=== PATIENT | male | born 1955 | race Caucasian/White ===

== ENCOUNTER 2017-01-20 15:00 | Outpatient (CLI) | payer OTHER | END 2017-01-20 15:01 | disposition critical access hospital (66) | LOC: EMS 15:00 | PROVIDERS: ATTEND Surgery | DX: R10.2 Pelvic and perineal pain (principal); V80.010A Animal-rider injured by fall from or being thrown from horse in noncollision accident, initial encounter; Y93.52 Activity, horseback riding; Y92.008 Other place in unspecified non-institutional (private) residence as the place of occurrence of the external cause | CPT/HCPCS: A0425; A0429 ==

== ENCOUNTER 2017-01-20 15:30 | Emergency (ER) | payer OTHER ==
--- NOTE | 2017-01-20 16:20 | ED Physician Documentation ---
History of Present Illness - Stated complaint Stated Complaint: R HIP PAIN - Chief complaint Chief Complaint: Ext Problem - History obtained from History obtained from: Patient, EMS - History of Present Illness Timing: Today Pain level max: 5 Pain level now: 5 Improved by: rest Worsened by: movement - Additonal information Additional information: fall off horse. landed on R hip. Was able to stand with assistance. but unable to walk. Called EMS and placed on backboard. No head injury. no neck injury. Review of Systems Constitutional: denies: Fever, Chills Throat: denies: Sore throat Cardiac: denies: Chest pain / pressure Respiratory: denies: Cough GI: denies: Nausea, Vomiting, Diarrhea Skin: denies: Rash Musculoskeletal: denies: Neck pain, Back pain Neurologic: denies: Headache PD PAST MEDICAL HISTORY - Past Medical History Past Medical History: Yes - Past Surgical History Past Surgical History: No - Present Medications Home Medications: Ambulatory Orders Medication Instructions Recorded Confirmed Hydrocodone/Acetaminophen 1 - 2 each PO Q6H PRN #20 tablet 01/20/17 [Hydrocodon-Acetaminophen 5-325] - Allergies Allergies/Adverse Reactions: Allergies Allergy/AdvReac Type Severity Reaction Status Date / Time No Known Drug Allergies Allergy Verified 01/20/17 15:45 - Social History Does the pt smoke?: No Smoking Status: Unknown if ever smoked Does the pt drink ETOH?: Yes - Immunizations Immunizations are current?: Yes PD ED PE NORMAL - Vitals Vital signs reviewed: Yes - General General: Alert and oriented X 3, No acute distress, Well developed/nourished - HEENT HEENT: Atraumatic, PERRL, EOMI, Ears normal, Moist mucous membranes - Neck Neck: Supple, no meningeal sign, No bony TTP - Cardiac Cardiac: RRR, Strong equal pulses - Respiratory Respiratory: No respiratory distress, Clear bilaterally - Abdomen Abdomen: Soft, Non tender, Non distended - Back Back: Other (TTP low lumbar. Pelvis is stable.) - Derm Derm: Warm and dry - Extremities Extremities: Other (TTP over R hip and pubic ramus. o/w normal exam) - Neuro Neuro: Alert and oriented X 3 - Psych Psych: Normal mood, Normal affect Results - Vitals Vitals: Vital Signs - 24 hr 01/20/17 01/20/17 15:42 18:35 Temperature 36.8 C Heart Rate 59 L 74 Respiratory 12 16 Rate Blood Pressure 112/72 105/70 O2 Saturation 100 Oxygen O2 Source Room air - Labs Labs: Laboratory Tests 01/20/17 01/20/17 16:46 16:46 WBC 16.9 H RBC 4.99 Hgb 15.4 Hct 45.7 MCV 91.5 MCH 30.9 MCHC 33.8 RDW 13.0 Plt Count 201 MPV 9.6 Neut # 14.8 H Lymph # 1.0 L [place] # 1.0 Eos # 0.0 Baso # 0.1 Absolute Nucleated RBC 0.02 Nucleated RBCs 0.1 Sodium 137 Potassium 3.8 Chloride 103 Carbon Dioxide 25 Anion Gap 9.0 BUN 26 H Creatinine 1.0 Estimated GFR (MDRD) 76 L Glucose 108 H Calcium 9.2 Total Bilirubin 1.0 AST 32 ALT 30 Alkaline Phosphatase 65 Total Protein 7.0 Albumin 4.4 Globulin 2.6 Albumin/Globulin Ratio 1.7 Lipase 27 - Rads (name of study) hip/pelvis xray Radiology: Prelim report reviewed, EMP read contemporaneously, See rad report ( Prominent symphysis pubis diastases of 9 mm, otherwise unremarkable pelvis and hip radiography. No fracture identified. ) L spine xray Radiology: Prelim report reviewed, EMP read contemporaneously, See rad report ( No fracture identified. Minimal dextroscoliosis and loss of normal cervical lordosis. . Multilevel degenerative lumbar disk disease, worst at L4-L5. ) PD MEDICAL DECISION MAKING - ED course Complexity details: reviewed results, re-evaluated patient, considered differential, d/w patient, d/w family, d/w consultant [employer]. 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 No acute findings radiographically other than a prominent symphysis pubis diastasis of 9 mm. Pelvis is stable on exam. Discussed the case with orthopedics, Dr. Barcenas who recommends weightbearing as tolerated, walker and follow-up in the office in 1-2 weeks for repeat x-ray. Abdomen remained soft, nontender nondistended. No neurological deficits. Pain well controlled and he is able to ambulate well with a walker. Patient and family counseled regarding signs and symptoms for which I believe and urgent re- evaluation would be necessary. Patient with good understanding of and agreement to plan and is comfortable going home at this time This document was made in part using voice recognition software. While efforts are made to proofread this document, sound alike and grammatical errors may occur. Spines cleared clinically. No evidence of head trauma Departure - Departure Disposition: 01 Home, Self Care Clinical Impression: Traumatic diastasis of symphysis pubis Qualifiers: Encounter type: initial encounter Qualified Code(s): S33.4XXA - Traumatic rupture of symphysis pubis, initial encounter Condition: Good Instructions: ED Acute Pain [facility] Follow-Up: [facility] [Provider Group] (in 1-2 weeks for repeat xrays. ) Prescriptions: Hydrocodone/Acetaminophen [Hydrocodon-Acetaminophen 5-325] 1 - 2 each PO Q6H PRN #20 tablet PRN Reason: pain Comments: Return if you worsen. this should improve over the next week or two. Make sure to follow up with orthopedics within 1-2 weeks for repeat xrays. Do not drink alcohol or drive while on narcotic pain medicine. Note that many narcotic pain relievers also contain tylenol/acetaminophen. Please ensure that your total dose of acetaminophen from all sources does not exceed 3 grams (3000mg) per day. You may constipated on this medication, take a stool softener such as "Colace" twice a day while you are on it. Also recommend a vbff-riq-wugjtte laxative such as senna or MiraLAX any day that you do not have a bowel movement. If you received narcotic pain medication in the emergency department, do not drive or operate machinery for the next 24 hours. Discharge Date/Time: 01/20/17 18:40
[2017-01-20 16:53] LABS: BASOPHILS # (AUTO) 0.1 10^3/uL (0.0-0.1); BASOPHILS % (AUTO) 0.6 %; EOSINOPHILS % (AUTO) 0.2 %; HCT - HEMATOCRIT 45.7 % (42.0-52.0); HGB - HEMOGLOBIN 15.4 g/dL (14.0-18.0); LYMPHOCYTES % (AUTO) 5.7 %; MEAN CORPUSCULAR HEMOGLOBIN 30.9 pg (27.0-31.0); MEAN CORPUSCULAR HGB CONC 33.8 g/dL (32.0-36.0); MEAN CORPUSCULAR VOLUME 91.5 fL (80.0-94.0); MEAN PLATELET VOLUME 9.6 fL (7.4-11.4); MONOCYTES % (AUTO) 5.8 %; NEUTROPHILS # (AUTO) 14.8 10^3/uL (1.5-6.6); NEUTROPHILS % (AUTO) 87.7 %; NUCLEATED RED BLOOD CELLS AUTO 0.1 /100WBC; RED BLOOD COUNT 4.99 10^6/uL (4.70-6.10); UNCORRECTED WHITE BLOOD COUNT 16.9 x10^3/uL; WHITE BLOOD COUNT 16.9 x10^3/uL (4.8-10.8)
--- NOTE | 2017-01-20 17:02 | XRAY Preliminary Report ---
Exam: XR Hip w/Pelvis 2-3V RT IMPRESSION: Prominent symphysis pubis diastases of 9 mm, otherwise unremarkable pelvis and hip radiog sae. No fracture identified. [facility] SITE ID: [id number]
--- NOTE | 2017-01-20 17:05 | XRAY Preliminary Report ---
Exam: XR Lumbar Spine 2 View IMPRESSION: 1. No fracture identified. 2. Minimal dextroscoliosis and loss of normal cervical lordosis. 3. Multilevel degenerative lumbar disk disease, worst at L4-L5. [facility] SITE ID: [id number]
--- NOTE | 2017-01-20 17:05 | XRAY Report ---
EXAM: RIGHT HIP AND PELVIS RADIOGRAPHY EXAM DATE: 01/20/2017 04:21 PM. HISTORY: Fall off horse. Hip pain. COMPARISONS: None. TECHNIQUE: 1 view of the pelvis and 1 view of the hip. FINDINGS: Bones: Normal. No fracture or bone lesion. Joints: Prominent symphysis pubis diastases of 9 mm, otherwise the bilateral hip, pubis symphysis, an d sacroiliac joints are preserved. Soft Tissues: Normal. No soft tissue swelling. IMPRESSION: Prominent symphysis pubis diastases of 9 mm, otherwise unremarkable pelvis and hip radiog sae. No fracture identified. [facility] Referring Provider Line: [phone] SITE ID: [id number]
--- NOTE | 2017-01-20 17:07 | XRAY Report ---
EXAM: LUMBOSACRAL SPINE RADIOGRAPHY EXAM DATE: 01/20/2017 04:21 PM. CLINICAL HISTORY: Fall off horse. Back and hip pain. COMPARISONS: None. TECHNIQUE: 2 views. FINDINGS: Alignment: Minimal dextroscoliosis. No spondylolisthesis. Loss of normal lumbar lordosis. Bones: Five gym-xhh-gbxkjag lumbar vertebral bodies are present. No fractures or bone lesions. Disks: Multilevel disk space narrowing with spurring, worst at L4-L5, least at L3-L4. Sacroiliac Joints: Unremarkable. Soft Tissues: Normal. The visualized bowel gas pattern is normal. IMPRESSION: 1. No fracture identified. 2. Minimal dextroscoliosis and loss of normal cervical lordosis. 3. Multilevel degenerative lumbar disk disease, worst at L4-L5. [facility] Referring Provider Line: [phone] SITE ID: [id number]
[2017-01-20 17:21] LABS: ALBUMIN/GLOBULIN RATIO 1.7 (1.0-2.2); CALCIUM 9.2 mg/dL (8.5-10.3); POTASSIUM 3.8 mmol/L (3.5-5.0)
[2017-01-20] MEDS ORDERED: MORPHINE 2 MG/ML SYRINGE IVP STA (17:28)
[2017-01-20] MEDS ORDERED: MORPHINE 2 MG/ML SYRINGE ONE ×2 (17:30→17:43)
[2017-01-20] MEDS ORDERED: HYDROcod/ACETAM 5/325 MG TABLET PO STA (18:17)
[2017-01-20] MEDS ORDERED: HYDROcod/ACETAM 5/325 MG TABLET ONE (18:18)
[2017-01-20 18:51] VITALS: BP 105/70
== END 2017-01-20 18:40 | disposition home or self-care (01) ==
LOC: EDBD → ED 15:30
DX: S33.4XXA Traumatic rupture of symphysis pubis, initial encounter (principal); V80.010A Animal-rider injured by fall from or being thrown from horse in noncollision accident, initial encounter; Y93.52 Activity, horseback riding; Y92.838 Other recreation area as the place of occurrence of the external cause
CPT/HCPCS: 36415; 72100; 73502; 80053; 83690; 85025; 96374; 99284; A9270

== ENCOUNTER 2020-02-21 08:00 | Outpatient (CLI) | payer OTHER, MEDICARE ==
--- NOTE | 2020-02-21 16:25 | XRAY Report ---
PROCEDURE: Finger(s) LT INDICATIONS: LEFT THUMB PAIN TECHNIQUE: AP hand, 3 views of the thumb finger(s) acquired. COMPARISON: None. FINDINGS: Bones: No acute fractures or dislocations. Minimal degenerative changes of the thumb carpometacarpal , metacarpophalangeal, and interphalangeal joints. No suspicious bony lesions. Soft tissues: No suspicious soft tissue calcifications. No radiopaque soft tissue foreign bodies id entified. IMPRESSION: 1. No radiopaque soft tissue foreign bodies. 2. Left thumb without acute fracture or dislocation. 3. Minimal degenerative changes of the left thumb. Reviewed by: Gregg Lindsay MD on 02/21/2020 4:24 PM PDT Approved by: Gregg Lindsay MD on 02/21/2020 4:24 PM PDT Station ID: [id number]
== END 2020-02-21 23:59 | disposition home or self-care (01) ==
LOC: DI.S 08:00
PROVIDERS: ATTEND Physician Assistant Medical
DX: M19.042 Primary osteoarthritis, left hand (principal)
CPT/HCPCS: 73140

== ENCOUNTER 2023-02-23 11:29 | Emergency (ER) | payer MEDICARE, OTHER ==
[2023-02-23 11:56] LABS: BASOPHILS % (AUTO) 0.8 %; EOSINOPHILS # (AUTO) 0.1 10^3/uL (0.0-0.7); EOSINOPHILS % (AUTO) 2.3 %; HCT - HEMATOCRIT 47.8 % (42.0-52.0); HGB - HEMOGLOBIN 16.4 g/dL (14.0-18.0); LYMPHOCYTES # (AUTO) 1.7 10^3/uL (1.5-3.5); LYMPHOCYTES % (AUTO) 31.5 %; MEAN CORPUSCULAR HEMOGLOBIN 30.9 pg (27.0-31.0); MEAN CORPUSCULAR HGB CONC 34.3 g/dL (32.0-36.0); MEAN CORPUSCULAR VOLUME 90.2 fL (80.0-94.0); MEAN PLATELET VOLUME 11.2 fL (7.4-11.4); MONOCYTES # (AUTO) 0.5 10^3/uL (0.0-1.0); MONOCYTES % (AUTO) 8.4 %; NEUTROPHILS % (AUTO) 56.6 %; PLT - PLATELET COUNT 202 10^3/uL (130-450); WHITE BLOOD COUNT 5.3 x10^3/uL (4.8-10.8)
[2023-02-23 12:11] LABS: ALBUMIN 4.5 g/dL (3.2-5.5); ALBUMIN/GLOBULIN RATIO 1.5 (1.0-2.2); BILIRUBIN,TOTAL 0.9 mg/dL (0.2-1.0); CALCIUM 9.4 mg/dL (8.5-10.3); CREATININE 0.9 mg/dL (0.6-1.3); POTASSIUM 4.2 mmol/L (3.5-4.5); TOTAL PROTEIN 7.6 g/dL (6.4-8.9)
[2023-02-23] MEDS ORDERED: ATROPINE 0.4 MG/ML VIAL IVP ONE (12:15)
[2023-02-23 12:16] LABS: TROPONIN I HIGH SENSITIVITY 2.9 ng/L (2.3-19.7)
--- NOTE | 2023-02-23 12:35 | ED Physician Documentation ---
History of Present Illness - Stated complaint Stated Complaint: FAINTED,HEAD PX - Chief complaint Chief Complaint: Trauma Hd/Nk - History obtained from History obtained from: Patient, Family - History of Present Illness Timing: Today Pain level max: 9 Pain level now: 0 - Additonal information Additional information: Patient is a 67-year-old male who presents to the emergency department stating that he had a syncopal event today. He states he had a severe left-sided headache, sudden onset followed by syncope he thinks for about 5 minutes. He states that he has passed out before, usually following a stimuli such as a blood draw. 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 He is not on any medications at home. Does not see a triage licensed practical nurse. Does have a primary care provider. Does not smoke or use any drugs. Patient states his headache is currently resolved. No focal neurological deficits. No neck or back pain. Review of Systems Constitutional: denies: Fever, Chills GI: denies: Vomiting, Diarrhea Skin: denies: Rash Musculoskeletal: denies: Neck pain, Back pain Neurologic: denies: Seizure, Confused PD PAST MEDICAL HISTORY - Past Medical History Past Medical History: No - Past Surgical History Past Surgical History: No - Present Medications Home Medications: Ambulatory Orders Medication Instructions Recorded Confirmed Hydrocodone/Acetaminophen 1 - 2 each PO Q6H PRN #20 tablet 01/20/17 [Hydrocodon-Acetaminophen 5-325] - Allergies Allergies/Adverse Reactions: Allergies Allergy/AdvReac Type Severity Reaction Status Date / Time peanut Allergy Unknown Verified 02/23/23 11:42 - Living Situation Living Situation: reports: With family Living Arrangement: reports: At home - Social History Does the pt smoke?: No Smoking Status: Unknown if ever smoked Does the pt drink ETOH?: Yes - Immunizations Immunizations are current?: Yes PD ED PE NORMAL - Vitals Vital signs reviewed: Yes - General General: Alert and oriented X 3, No acute distress, Well developed/nourished - HEENT HEENT: PERRL, Ears normal, Moist mucous membranes, Pharynx benign - Neck Neck: Supple, no meningeal sign - Cardiac Cardiac: RRR, No murmur, Strong equal pulses - Respiratory Respiratory: No respiratory distress, Clear bilaterally - Abdomen Abdomen: Soft, Non tender, Non distended - Derm Derm: Warm and dry - Extremities Extremities: No edema, No calf tenderness / cord - Neuro Neuro: Alert and oriented X 3 - Psych Psych: Normal mood, Normal affect Results - Vitals Vitals: Vital Signs - 24 hr 02/23/23 02/23/23 02/23/23 11:35 12:11 12:30 Temperature 35.6 C L Heart Rate 48 L 45 L 38 L Respiratory 16 16 13 Rate Blood Pressure 135/73 H 132/80 H 123/79 O2 Saturation 100 100 100 Oxygen O2 Source Room air - EKG (time done) 1155 EKG releavant findings:: EKG personally interpreted by author of this note. Relevant findings are: Rate: Rate (enter#) (42) Rhythm: Sinus bradycardia, Other (PVC) [place]: Normal Intervals: Normal AL QRS: Normal Ischemia: Normal ST segments - Labs Labs: Laboratory Tests 02/23/23 02/23/23 02/23/23 11:48 11:50 11:50 WBC 5.3 RBC 5.30 Hgb 16.4 Hct 47.8 MCV 90.2 MCH 30.9 MCHC 34.3 RDW 13.0 Plt Count 202 MPV 11.2 Neut # (Auto) 3.0 Lymph # (Auto) 1.7 [place] # (Auto) 0.5 Eos # (Auto) 0.1 Baso # (Auto) 0.0 Absolute Nucleated RBC 0.00 Nucleated RBC % 0.0 Sodium 137 Potassium 4.2 Chloride 103 Carbon Dioxide 30 Anion Gap 4.0 L BUN 18 Creatinine 0.9 Estimated GFR (MDRD) 84 L Glucose 97 POC Whole Bld Glucose 91 Calcium 9.4 Total Bilirubin 0.9 AST 19 ALT 24 Alkaline Phosphatase 77 Troponin I High Sens 2.9 Total Protein 7.6 Albumin 4.5 Globulin 3.1 Albumin/Globulin Ratio 1.5 Lipase 27 PD Medical Decision Making - ED course Complexity details: reviewed results, re-evaluated patient, considered differential, d/w patient, d/w family, d/w automotive service consultant ED course: The CT scanner is broken and unavailable for use today. The patient's would likely benefit from cardiology evaluation as well given his bradycardia and syncope. He also has multiform P waves. He is on no medications. A call was placed to [facility] for transfer at 1240. The emergency department physician states that the patient must be sent through the transfer center. The transfer center states that the patient does not need to be sent through the transfer center for an ER to ER transfer. We will recontact the transfer center. Received message back from [facility] that their computers have gone down and they are on an internal disaster divert. Therefore I spoke with [facility], Dr. Paz in the emergency department who graciously accepts in transfer. There are no ambulance services available until after 7 PM tonight for transport, given his severe headache, syncope, symptomatic bradycardia I do not feel that it would be hernandez to wait over 6 hours to have any imaging performed, therefore the patient will be transferred via [facility]. COBRA forms completed. This document was made in part using voice recognition software. While efforts are made to proofread this document, sound alike and grammatical errors may occur. Departure - Departure Disposition: 02 Transfer Acute Care Hosp Clinical Impression: Symptomatic bradycardia Syncope Qualifiers: Syncope type: unspecified Qualified Code(s): R55 - Syncope and collapse Headache Qualifiers: Headache type: unspecified Headache chronicity pattern: acute headache Intractability: not intractable Qualified Code(s): R51.9 - Headache, unspecified Condition: Stable Forms: PCP List
[2023-02-23 13:18] VITALS: BP 124/74; O2SAT 96
== END 2023-02-23 13:32 | disposition short-term general hospital (02) ==
LOC: ED 11:29
DX: R55 Syncope and collapse (principal); R00.1 Bradycardia, unspecified; R51.9 Headache, unspecified
CPT/HCPCS: 36415; 80053; 83690; 84484; 85025; 93005; 99285